=== PATIENT | male | born 1980 | race Caucasian/White ===

== ENCOUNTER 2024-03-01 18:37 | Emergency (ER) | payer OTHER ==
[2024-03-01] MEDS ORDERED: Ipratropium/Albuterol 3 ML NEB ONE (18:48)
[2024-03-01] MEDS ORDERED: methylPREDNISolone Sod Succ/PF 125 MG/2 ML VIAL ONE (18:48)
[2024-03-01] MEDS ORDERED: Azithromycin 250 MG TAB ONE (19:39)
== END 2024-03-01 19:45 | disposition home or self-care (01) ==
LOC: BURERS 18:37
DX: J98.01 Acute bronchospasm (principal); F17.210 Nicotine dependence, cigarettes, uncomplicated
CPT/HCPCS: 71046; 94640; 96372; J2919; J7620